=== PATIENT | female | born 1980 | race Caucasian/White ===

== ENCOUNTER 2016-07-16 08:10 | Day surgery (SDC) | payer BC ==
[~2016-07-16] VITALS: Ht 180.3 cm; Wt 85.7 kg
[~2016-07-16 08:10] MED LIST: ACET325T9 PO; ACETAMINOPHEN INTRAVENOUS 100 ML IV ONE; CYCL10TA2 PO; DIPHENHYDRAMINE 50 MG/ML VIAL. IV PRN; DULO60CA6 PO; ESTR2TAB PO; FENTANYL PF 100 MCG/2 ML VIAL. IV PRN; HYDR25SU18 RC; HYDROMORPHONE 2 MG/ML VIAL. IV PRN; IV RINGERS,LACTATED 1000ML 1,000 ML IV SCH; LIDOCAINE 1% 1 ML SYRINGE. ID PRN; MEPERIDINE PF 25 MG/ML VIAL. IV PRN; MIDAZOLAM HCL/PF 2 MG/2 ML VIAL. IV PRN; OXYC-323 PO; PROCHLORPERAZINE 10 MG/2 ML VIAL. IV PRN; ZOLP10TA PO
[2016-07-16] MEDS ORDERED: PROPOFOL 20 ML IV ONE (09:09)
[2016-07-16] MEDS ORDERED: MIDAZOLAM HCL/PF 2 MG/2 ML VIAL. ONE (09:09)
[2016-07-16] MEDS ORDERED: ONDANSETRON PF 4 MG/2 ML VIAL. ONE (09:09)
[2016-07-16] MEDS ORDERED: DEXAMETHASONE SOD PHOS 20 MG/5 ML VIAL. ONE (09:09)
[2016-07-16] MEDS ORDERED: LIDOCAINE 2% 100 MG/5 ML SYRINGE. ONE (09:09)
[2016-07-16] MEDS ORDERED: ROCURONIUM 50 MG/5 ML VIAL. ONE (09:10)
[2016-07-16] MEDS ORDERED: FENTANYL PF 100 MCG/2 ML VIAL. ONE (09:10)
[2016-07-16] MEDS ORDERED: BUPIVACAINE-EPI 0.25%-1:200000 50 ML VIAL. ONE (09:23)
[2016-07-16] MEDS ORDERED: CEFAZOLIN 2GM PREMIX 50 ML IV ONE (10:00)
[2016-07-16] MEDS ORDERED: GLYCOPYRROLATE 1 MG/5 ML VIAL. ONE (10:16)
[2016-07-16] MEDS ORDERED: NEOSTIGMINE METHYLSULFATE 5 MG/5 ML SYRINGE. ONE (10:16)
[2016-07-16] MEDS ORDERED: SEVOFLURANE 61 TO 120 MINUTES. IH ONE (10:21)
--- NOTE | 2016-07-16 10:36 | PDOC ---
BRIEF OPERATIVE NOTE Date: Jul 16, 2016 Pre-Op Diagnosis Pelvic and abdominal pain. Post-Op Diagnosis Abdominal adhesions and foreign body Procedure Performed Dx L/S with removal foreign body and lysis of adhesions Surgeon Brian Anesthesia Type: General Blood Loss 10ml Specimens Obtained foreign body metallic stable. Findings As above Complications None MOISES ARANGO MD Jul 16, 2016 10:36
--- NOTE | 2016-07-16 10:37 | DISCH ---
DISCHARGE INSTRUCTIONS Condition on Discharge Condition on Discharge: Stable Activity After Discharge Activity Instructions for Disc: Avoid exertion Other activity instructions: No lifiting >20lbs for 2 weeks Lifting Instructions after Dis: No heavy lifting Diet after Discharge Diet after Discharge: Regular Wound Incision Care Other wound/incision instructi: Deena shower in 24 hours Contacting the after DC Call your doctor for: If your condition worsens Follow-Up Follow up with: Dr Arango in 2 weeks MOISES ARANGO MD Jul 16, 2016 10:37
[2016-07-16] MEDS ORDERED: KETOROLAC TROMETHAMINE 30 MG/ML INJ. ONE (10:38)
[2016-07-16] MEDS: FENTANYL PF 100 MCG/2 ML VIAL. IV PRN ×2 (10:40→10:57)
[2016-07-16] MEDS ORDERED: KETOROLAC TROMETHAMINE 30 MG/ML INJ. IV ONE (11:30)
[2016-07-16] MEDS ORDERED: FENTANYL PF 100 MCG/2 ML VIAL. IV PRN ×2 (11:45)
--- NOTE | 2016-07-16 11:55 | OP ---
DATE OF SURGERY: 07/16/2016 PREOPERATIVE DIAGNOSIS: Abdominal pelvic pain. POSTOPERATIVE DIAGNOSIS: Foreign body, staple with adhesions. PROCEDURE: Diagnostic laparoscopy, lysis of adhesions, removal of foreign body. SURGEON: Sonido Arango M.D. INDICATIONS: The patient is a 35-year-old female who is having worsening lower abdominal pelvic pain. She has had several surgeries; , hysterectomy, diagnostic laparoscopy with lysis of adhesions and other PR INTERN surgeries. Last diagnostic laparoscopy with lysis of adhesions was 3-5 years ago, which was having similar pain after the procedure, after lysis of adhesions she felt much better for that period of time. PROCEDURE: Diagnostic laparoscopy with lysis of adhesions was explained to the patient in detail. Risks, benefits were also discussed including bleeding, infection, injury to intra-abdominal contents, possibly sustaining further open operations. Alternatives of this procedure were also discussed with the patient who seemed to understand and gave verbal consent to have the procedure performed. DESCRIPTION OF PROCEDURE: The patient was taken to the operating room and placed in the supine position, general anesthesia was initiated. Once the patient was asleep and intubated, her abdomen was prepped and draped in usual sterile fashion using ChloraPrep. An area at her umbilicus injected 0.25% Marcaine with epinephrine. Incision was made with an 11 blade scalpel and a Veress needle was placed within the abdomen. Pneumoperitoneum was achieved. Once this was complete, 5 mm port was placed and a 5 mm camera was placed within the abdomen. Abdomen was inspected and it was noted that she had in the right lower quadrant just kind of lateral to the midline on the anterior abdominal wall was an area of scar tissue and adhesions and also appeared to be couple of patience that were part of this adhesion that also incorporated some large intestine in the adhesions. At this point two more 5 mm ports were placed, one in the right mid abdomen and one in the left mid abdomen under direct visualization, using a [place] dissector and EndoShears scissors the adhesions were taken down on the anterior abdominal wall to the colon. This exposed the staple this was resected using sharp dissection and electrocautery. Staple was removed and sent for pathology. There were a few more ____ adhesions to the colon and small bowel along the previous Pfannenstiel incision these were taken down with sharp dissection without any difficulties. It was felt at this point all these adhesions had been safely taken down and the abdomen appeared to be in good condition. The pneumoperitoneum was reduced. All ports were removed. The skin was reapproximated at all port sites with 4-0 subcuticular Monocryl. Mastisol, Steri-Strips and Band-Aids were applied as dressings. The patient was awakened, extubated in the operating room, taken to recovery in stable condition. All sponge, instrument counts listed as correct. Estimated blood loss 10 mL. SONIDO ARANGO MD DR: KRISHAN/jana JOB#: [id number] / [id number] Dalila Connelly MD
[2016-07-16] MEDS ORDERED: OXYCODONE/APAP 5/325 TABLET. PO ONE (12:15)
[2016-07-16] MEDS ORDERED: CEFAZOLIN 2GM PREMIX 50 ML IV SCH (12:15)
[2016-07-16] MEDS ORDERED: OXYC-323 PO (12:23)
[2016-07-16 13:10] VITALS: BP 95/51
--- NOTE | 2016-07-17 17:23 | PATHOLOGY ---
PATHOLOGY REPORT * * * * * * * * FINAL DIAGNOSIS: Foreign body, clinically from abdominal area (Gross only). (JPM:mgr; d/t: 07/17/16) REPORT ELECTRONICALLY SIGNED BY: Jhonny Manning M.D. DATE/TIME: 07/17/2016 17:22 * * * * * * * * GROSS PATHOLOGY: The specimen is received in formalin labeled "Emily Medina, foreign body," and verified as "abdomen area" via phone. Received is a segment of red-brown soft tissue measuring 0.7 x 0.5 x 0.1 cm in greatest dimensions. Sectioning through the specimen reveals a single metallic staple encased in soft tissue measuring 0.4 x 0.3 x 0.1 cm. A gross photograph is taken. Sections are not submitted. (CAA; 07/17/2016) INITIAL CPT CODE(S): A; 98687 Professional services performed by [facility] [place] [address] Technical services performed by [facility] at [address] [place] [address]. SPECIMEN(S) RECEIVED: A.Foreign body CLINICAL HISTORY: Foreign body, lysis of adhesions; foreign body metallic staple PATIENT: EMILY MEDINA E /AGE: 6 1980 (Age: 35) PATIENT #: [id number] ALT CASE #: SPECIMEN COLLECTION DATE: 07/16/2016 SPECIMEN RECEIVED DATE: 07/16/2016 [facility] - [address] [place] [address] - PHONE: [phone] * * * END OF REPORT * * *
== END 2016-07-16 13:15 | disposition home or self-care (01) ==
LOC: SURG 08:10
PROVIDERS: ATTEND Surgery
DX: K66.0 Peritoneal adhesions (postprocedural) (postinfection) (principal); T18.3XXA Foreign body in small intestine, initial encounter; J44.9 Chronic obstructive pulmonary disease, unspecified; M19.90 Unspecified osteoarthritis, unspecified site; F41.9 Anxiety disorder, unspecified; E16.2 Hypoglycemia, unspecified; Z90.49 Acquired absence of other specified parts of digestive tract; Z98.51 Tubal ligation status; Z90.710 Acquired absence of both cervix and uterus
CPT/HCPCS: J0131; J0690; J1100; J1885; J2250; J2405; J2704; J2710; J3010; J3490; J7030; J7120

== ENCOUNTER 2016-07-19 10:32 | Emergency (ER) | payer BC ==
[~2016-07-19] VITALS: Ht 175.3 cm; Wt 83.9 kg
[~2016-07-19 10:32] MED LIST changes: -ACETAMINOPHEN INTRAVENOUS 100 ML IV ONE; -DIPHENHYDRAMINE 50 MG/ML VIAL. IV PRN; -FENTANYL PF 100 MCG/2 ML VIAL. IV PRN; -HYDROMORPHONE 2 MG/ML VIAL. IV PRN; -IV RINGERS,LACTATED 1000ML 1,000 ML IV SCH; -LIDOCAINE 1% 1 ML SYRINGE. ID PRN; -MEPERIDINE PF 25 MG/ML VIAL. IV PRN; -MIDAZOLAM HCL/PF 2 MG/2 ML VIAL. IV PRN; -PROCHLORPERAZINE 10 MG/2 ML VIAL. IV PRN
[2016-07-19 11:13] LABS: BASO # 0.1 x10^3/uL (0.0-0.2); BASO % 1 % (0-3); EOS % 3 % (0-3); HEMATOCRIT 40.5 % (36.0-47.0); HEMOGLOBIN 13.5 g/dL (12.0-15.5); LYMPH # 3.2 x10^3/uL (1.0-4.8); LYMPH % 36 % (24-48); MEAN CORPUSCULAR HEMOGLOBIN 30 pg (25-35); MEAN CORPUSCULAR HGB CONC 33 g/dL (31-37); MEAN CORPUSCULAR VOLUME 91 fL (79-100); MONO % 6 % (0-9); NEUT % 54 % (31-73); PLATELET COUNT 322 x10^3/uL (140-400); RED BLOOD COUNT 4.44 x10^6/uL (3.50-5.40); WHITE BLOOD COUNT 8.8 x10^3/uL (4.0-11.0)
[2016-07-19 11:14] LABS: BILIRUBIN,URINE NEGATIVE (NEG); GLUCOSE,URINE NEGATIVE (NEG); NITRITE,URINE NEGATIVE (NEG); PH,URINE 6.5; PROTEIN,URINE NEGATIVE (NEG-TRACE); UROBILINOGEN,URINE 0.2 mg/dL (0.2 mg/dL)
[2016-07-19] MEDS ORDERED: ONDANSETRON PF 4 MG/2 ML VIAL. IV ONE (11:15)
[2016-07-19] MEDS ORDERED: IV NORMAL SALINE 1000ML BAG 1,000 ML IV SCH (11:30)
[2016-07-19 11:33] LABS: ALBUMIN 3.3 g/dL (3.4-5.0); ALBUMIN/GLOBULIN RATIO 0.9 (1.0-1.7); CALCIUM 8.8 mg/dL (8.5-10.1); CREATININE 0.8 mg/dL (0.6-1.0); GFR 81.6; POTASSIUM 3.4 mmol/L (3.5-5.1); TOTAL BILIRUBIN 0.3 mg/dL (0.2-1.0)
[2016-07-19] MEDS: FENTANYL PF 100 MCG/2 ML VIAL. IV PRN ×2 (11:33→12:25)
[2016-07-19 11:34] LABS: BACTERIA,URINE 0 /HPF (0-FEW); RBC,URINE OCC /HPF (0-2); SQUAMOUS EPITHELIAL CELL,UR FEW /LPF; WBC,URINE 0 /HPF (0-4)
--- NOTE | 2016-07-19 13:43 | RAD ---
Two-view abdominal series and PA view chest x-ray Indications: Upper quadrant abdominal pain. Nausea. Diarrhea. Symptoms have been present since yesterday. Patient had laparoscopy on July 16, 2016. Findings: No obstructive bowel pattern is seen. No air-fluid levels are seen. No free intraperitoneal air is seen. Mild fecal retention is seen throughout the colon. Vascular calcifications are seen within the anatomic pelvis. Cholecystectomy clips are present. Chest x-ray demonstrates no acute radiographic abnormality. The heart size and pulmonary vasculature and mediastinum and both maximo are unchanged from March 21, 2014. IMPRESSION: No acute radiographic abnormality.
[2016-07-19] MEDS ORDERED: CYCL10TA2 PO (14:34)
[2016-07-19 14:39] VITALS: BP 98/63
--- NOTE | 2016-07-19 15:35 | ED.ADGEN ---
Past Medical History Past Medical History: Other Additional Past Medical Histor: "restrictive lung disease" Past Surgical History: Appendectomy, Cholecystectomy, , Hysterectomy, Tonsillectomy Additional Past Surgical Histo: rt hip bx shoulder Alcohol Use: None Drug Use: None Adult General Chief Complaint Chief Complaint: POST-OP PROBLEM HPI HPI Patient is a 35 year old woman, history of "restrictive lung disease", abdominal adhesions for which she is receive multiple surgeries, including an adhesion lysis that was performed last week with Dr. Torres general surgery, who presents emergency Department with complaint of abdominal pain. Review of Systems Review of Systems Constitutional: Denies fever or chills. [] Eyes: Denies change in visual acuity. [] HENT: Denies nasal congestion or sore throat. [] Respiratory: Denies cough or shortness of breath. [] Cardiovascular: Denies chest pain or edema. [] GI: Denies abdominal pain, nausea, vomiting, bloody stools or diarrhea. [] : Denies dysuria. [] Musculoskeletal: Denies back pain or joint pain. [] Integument: Denies rash. [] Neurologic: Denies headache, focal weakness or sensory changes. [] Endocrine: Denies polyuria or polydipsia. [] Lymphatic: Denies swollen glands. [] Psychiatric: Denies depression or anxiety. [] Current Medications Current Medications Current Medications Medications (Trade) Dose Ordered Sig/Jame Start Time Stop Time Status Last Admin Dose Admin Fentanyl Citrate 25 mcg 25 mcg PRN Q15MIN PRN 07/19/16 11:00 07/19/16 14:46 DC 07/19/16 12:25 25 MCG Ondansetron HCl (Zofran) 4 mg 1X ONCE 07/19/16 11:15 07/19/16 11:16 DC 07/19/16 11:33 4 MG Sodium Chloride (Iv Sodium Chloride 0.9% 1000ml Bag) 1,000 ml @ 1,000 mls/hr Q1H 07/19/16 11:30 07/19/16 12:29 DC 07/19/16 11:33 1,000 MLS/HR Allergies Allergies Allergies Coded Allergies Type Severity Reaction Last Updated Verified NSAIDS (Non-Steroidal Anti-Inflamma Allergy Severe Anaphylaxis 07/16/16 Yes morphine Allergy Intermediate rash 07/16/16 Yes Physical Exam Physical Exam Constitutional: Well developed, well nourished, no acute distress, non-toxic appearance. [] HENT: Normocephalic, atraumatic, bilateral external ears normal, oropharynx moist, no oral exudates, nose normal. [] Eyes: PERRLA, EOMI, conjunctiva normal, no discharge. [] Neck: Normal range of motion, no tenderness, supple, no stridor. [] Cardiovascular:Heart rate regular rhythm, no murmur, S1, S2, rubs or gallops. [] Lungs & Thorax: Bilateral breath sounds clear to auscultation, no wheezing, rhonchi, rales. No chest tenderness or tenderness. [] Abdomen: Bowel sounds normal, soft, patient with healing surgical incisions her labs are procedure noted, incision clean dry and intact, patient with mild ecchymosis on the abdomen, mild tenderness palpation in the midepigastric region , no rebound or rigidity noted, no masses, no pulsatile masses. [] Skin: Warm, dry, no erythema, no rash. [] Back: No tenderness, no CVA tenderness. [] Extremities: No tenderness, no cyanosis, no clubbing, ROM intact, no edema. [] Neurologic: Alert and oriented X 3, normal motor function, normal sensory function, no focal deficits noted. [] Psychologic: Affect normal, judgement normal, mood normal. [] Current Patient Data Vital Signs Vital Signs Date Time Temp Pulse Resp B/P Pulse Ox O2 Delivery O2 Flow Rate FiO2 07/19/16 14:39 66 98/63 07/19/16 13:49 14 95 Room Air 07/19/16 10:37 97.9 97.9 Lab Values Laboratory Tests Test 07/19/16 10:45 White Blood Count 8.8x10^3/uL (4.0-11.0) Red Blood Count 4.44x10^6/uL (3.50-5.40) Hemoglobin 13.5g/dL (12.0-15.5) Hematocrit 40.5% (36.0-47.0) Mean Corpuscular Volume 91fL (79-100) Mean Corpuscular Hemoglobin 30pg (25-35) Mean Corpuscular Hemoglobin Concent 33g/dL (31-37) Red Cell Distribution Width 13.0% (11.5-14.5) Platelet Count 322x10^3/uL (140-400) Neutrophils (%) (Auto) 54% (31-73) Lymphocytes (%) (Auto) 36% (24-48) Monocytes (%) (Auto) 6% (0-9) Eosinophils (%) (Auto) 3% (0-3) Basophils (%) (Auto) 1% (0-3) Neutrophils # (Auto) 4.8x10^3uL (1.8-7.7) Lymphocytes # (Auto) 3.2x10^3/uL (1.0-4.8) Monocytes # (Auto) 0.5x10^3/uL (0.0-1.1) Eosinophils # (Auto) 0.2x10^3/uL (0.0-0.7) Basophils # (Auto) 0.1x10^3/uL (0.0-0.2) Urine Collection Type Unknown Urine Color Yellow Urine Clarity Clear Urine pH 6.5 Urine Specific [place] <=1.005 Urine Protein Negativemg/dL (NEG-TRACE) Urine Glucose (UA) Negativemg/dL (NEG) Urine Ketones (Stick) Negativemg/dL (NEG) Urine Blood Negative (NEG) Urine Nitrite Negative (NEG) Urine Bilirubin Negative (NEG) Urine Urobilinogen Dipstick 0.2mg/dL (0.2 mg/dL) Urine Leukocyte Esterase Negative (NEG) Urine RBC Occ/HPF (0-2) Urine WBC 0/HPF (0-4) Urine Squamous Epithelial Cells Few/LPF Urine Bacteria 0/HPF (0-FEW) Sodium Level 142mmol/L (136-145) Potassium Level 3.4mmol/L (3.5-5.1) L Chloride Level 106mmol/L (98-107) Carbon Dioxide Level 27mmol/L (21-32) Anion Gap 9 (6-14) Blood Urea Nitrogen 9mg/dL (7-20) Creatinine 0.8mg/dL (0.6-1.0) Estimated GFR (Cockcroft-Gault) 81.6 BUN/Creatinine Ratio 11 (6-20) Glucose Level 117mg/dL (70-99) H Calcium Level 8.8mg/dL (8.5-10.1) Total Bilirubin 0.3mg/dL (0.2-1.0) Aspartate Amino Transferase (AST) 15U/L (15-37) Alanine Aminotransferase (ALT) 20U/L (14-59) Alkaline Phosphatase 135U/L (46-116) H Total Protein 7.0g/dL (6.4-8.2) Albumin 3.3g/dL (3.4-5.0) L Albumin/Globulin Ratio 0.9 (1.0-1.7) L Lipase 123U/L (73-393) Laboratory Tests 07/19/16 10:45 Laboratory Tests 07/19/16 10:45 EKG EKG ECG: Rhythm strip: 60 beats minute, sinus rhythm, no ectopy. As interpreted by me. Radiology/Procedures Radiology/Procedures [] [facility] [address] [place] [address] IMAGING REPORT Signed PATIENT: SHEILA SAMANO ACCOUNT: [id number] : 1980 LOCATION: ER AGE: 35 SEX: F EXAM STATUS: REG ER ORD. PHYSICIAN: ROBERT ROBERTS DO REASON: abd pain PROCEDURE: ACUTE ABDOMEN SERIES Two-view abdominal series and PA view chest x-ray Indications: Upper quadrant abdominal pain. Nausea. Diarrhea. Symptoms have been present since yesterday. Patient had laparoscopy on July 16, 2016. Findings: No obstructive bowel pattern is seen. No air-fluid levels are seen. No free intraperitoneal air is seen. Mild fecal retention is seen throughout the colon. Vascular calcifications are seen within the anatomic pelvis. Cholecystectomy clips are present. Chest x-ray demonstrates no acute radiographic abnormality. The heart size and pulmonary vasculature and mediastinum and both maximo are unchanged from March 21, 2014. IMPRESSION: No acute radiographic abnormality. DICTATED and SIGNED BY: SHEA LEE MD DATE: 07/19/16 5517 CC: EUNICE HENSON MD; ROBERT ROBERTS DO ~ Course & Med Decision Making Course & Med Decision Making Pertinent Labs and Imaging studies reviewed. (See chart for details) Patient with normal vital signs, one episode of diarrhea in the ED, no nausea or vomiting. Primary concern is pain. Patient has not taken any for opiate medication she was given post surgery due to concern for causing constipation, last dose of medication was 2 days ago. He is agreeable to medication all IV fluids and evaluation in the ED. Acute abdominal series obtained, laboratory studies. No evidence of obstruction or other concerning findings identified. On reevaluation patient is resting comfortable, states she is feeling much better. Discussed postoperative discomfort. We did discuss use of other medications aside from narcotics, and continuation of stool softeners. Patient does have allergies to morphine, will hold off on giving tramadol after discussion, will use cycle Benzedrine for general and lysed muscle relaxation, patient to continue her other medications as directed by her primary care provider, to follow-up with Dr. Torres in 2 weeks as scheduled, and to return to the ED for any concerning symptoms as discussed. Patient discharged home in stable condition with plan as above. Dragon Disclaimer Dragon Disclaimer This electronic medical record was generated, in whole or in part, using a voice recognition dictation system. Departure Impression: Primary Impression: Abdominal pain Additional Impression: Diarrhea Disposition: 01 HOME, SELF-CARE Condition: IMPROVED Scripts Cyclobenzaprine Hcl 10 Mg [id number] Mg PO TID PRN PAIN #12 TAB Prov:ROBERT ORBERTS DO 07/19/16 Problem Qualifiers ROBERT ROBERTS DO Jul 19, 2016 15:35
== END 2016-07-19 14:40 | disposition home or self-care (01) ==
LOC: ER 10:32
DX: R10.9 Unspecified abdominal pain (principal); R19.7 Diarrhea, unspecified; Z88.8 Allergy status to other drugs, medicaments and biological substances; Z88.5 Allergy status to narcotic agent; Z90.49 Acquired absence of other specified parts of digestive tract; Z90.710 Acquired absence of both cervix and uterus; Z98.890 Other specified postprocedural states
CPT/HCPCS: 36415; 74022; 80053; 81001; 83690; 85027; 96361; 96374; 96375; 99285; J2405; J3010; J7030

== ENCOUNTER → 2016-09-28 | Outpatient (CLI) | payer BC ==
--- NOTE | 2016-09-28 14:56 | KCIC ---
Left lower extremity venous doppler ultrasound Indication: Posterior thigh pain . Bruising. Technique: Color Doppler, grayscale, duplex, spectral waveform analysis is used to evaluate the lower extremity deep venous system, including the common femoral vein, superficial femoral vein, popliteal vein, tibioperoneal trunk and calf veins. Findings: No evidence of deep venous thrombosis. Normal response to augmentation, normal compressibility and normal phasicity is demonstrated. Impression: Negative for deep venous thrombosis Electronically signed by: Paul Gupta MD (09/28/2016 2:53 PM)
== END | disposition home or self-care (01) ==
LOC: KCIC US 14:06
PROVIDERS: ATTEND Nurse Practitioner
DX: M79.605 Pain in left leg (principal); M79.89 Other specified soft tissue disorders
CPT/HCPCS: 93971

== ENCOUNTER 2017-08-01 11:54 | Emergency (ER) | payer BC ==
[2017-08-01] MEDS: DEXAMETHASONE SOD PHOS 4 MG/ML VIAL IV (12:34)
[2017-08-01] MEDS: diphenhydrAMINE 50 MG/ML VIAL IVP (12:34)
[2017-08-01] MEDS: METOCLOPRAMIDE HCL 10 MG/2 ML VIAL. IV (12:35)
[2017-08-01] MEDS: IV NORMAL SALINE 1000ML BAG 1,000 ML IV (12:35)
== END 2017-08-01 13:34 | disposition home or self-care (01) ==
LOC: ER 11:54
DX: G43.909 Migraine, unspecified, not intractable, without status migrainosus (principal); Z88.6 Allergy status to analgesic agent; Z88.5 Allergy status to narcotic agent; Z90.49 Acquired absence of other specified parts of digestive tract; Z90.710 Acquired absence of both cervix and uterus
CPT/HCPCS: 96361; 96374; 96375; 99284-25; J1100; J1200; J2765; J7030

== ENCOUNTER → 2017-12-02 | Outpatient (CLI) | payer BC ==
[2017-08-01 13:29] VITALS: BP 121/74
[2017-12-02] MEDS: LIDOCAINE 1% Multi-Dose 20 ML VIAL. ID ONE (11:46)
[2017-12-02] MEDS: IOHEXOL 300 MG/ML 50 ML VIAL. INT ART ONE (11:46)
[2017-12-02] MEDS: GADOBUTROL 7.5 MMOL/7.5 ML VIAL INT ART ONE (11:46)
--- NOTE | 2017-12-02 13:38 | KCIC ---
MR arthrogram of the right hip Indication: Right hip pain, clicking and popping, for one year. Technique: Standard 4 plane sequences are obtained. Intra-articular contrast was injected by different radiologist, who will dictate that procedure as a separate report. Findings: Artifact: No significant image degradation. Bones: No bone lesion, acute fracture or acute bone marrow edema. No femoral head osteonecrosis. Joint: No advanced DJD or acute articular cartilage defect Labrum: Mild blunting of the superior labrum. No evidence of labral detachment. Gluteus minimus tendon: Mild tendinosis. No high-grade tear. Gluteus medius tendon: Intact Hamstring tendon: Intact Iliopsoas tendon: Intact Rectus femoris tendon attachment: Intact Soft tissues:No significant abnormality. Impression: 1. Mild right gluteus minimus tendinosis. 2. Blunting of the superior labrum, compatible with chronic degeneration or chronic tear. No acute detachment. Electronically signed by: Paul Gupta MD (12/02/2017 1:35 PM) [id number]
--- NOTE | 2017-12-02 14:16 | KCIC ---
Right hip injection using fluoroscopic guidance, prior to MR. HISTORY: Hip pain. Severe right hip pain, popping, clicking for one year. TECHNIQUE: The procedure was explained to the patient as were potential risks, including among others infection, bleeding or allergic reaction. All questions were answered. Informed written and verbal consent was obtained. The hip region was prepped and draped in the usual sterile manner. Following administration of local anesthetic, a 22-gauge needle was advanced into the anterior hip. Following negative aspiration, 12 cc of a solution of 5cc Omnipaque-300 contrast, 5 cc 1% lidocaine, 10 cc normal saline, and 0.1 cc gadolinium was injected without difficulty. The needle was removed. There was good hemostasis at the injection site. The patient left in stable condition without immediate complication. A single spot image is obtained. FLUOROSCOPY TIME:?16 seconds Electronically signed by: Paul Gupta MD (12/02/2017 2:13 PM) [id number]
== END | disposition home or self-care (01) ==
LOC: KCIC 10:24
PROVIDERS: ATTEND Orthopaedic Surgery
DX: M76.891 Other specified enthesopathies of right lower limb, excluding foot (principal); J44.9 Chronic obstructive pulmonary disease, unspecified; G43.909 Migraine, unspecified, not intractable, without status migrainosus; E78.00 Pure hypercholesterolemia, unspecified; Z87.09 Personal history of other diseases of the respiratory system; Z88.5 Allergy status to narcotic agent; Z88.6 Allergy status to analgesic agent; Z88.8 Allergy status to other drugs, medicaments and biological substances; Z96.611 Presence of right artificial shoulder joint; Z96.612 Presence of left artificial shoulder joint; Z90.49 Acquired absence of other specified parts of digestive tract; Z90.710 Acquired absence of both cervix and uterus
CPT/HCPCS: 73525; 73722; A9585; Q9967

== ENCOUNTER 2018-04-11 15:55 | Emergency (ER) | payer BC ==
[~2018-04-11] VITALS: Ht 180.3 cm; Wt 93.0 kg
[~2018-04-11 15:55] MED LIST changes: -OXYC-323 PO; +OXYC1TAB15 PO
[2018-04-11 16:25] VITALS: BP 122/84
[2018-04-11 17:17] LABS: BILIRUBIN,URINE NEGATIVE (NEG); CLARITY,URINE CLEAR; COLOR,URINE YELLOW; NITRITE,URINE NEGATIVE (NEG); PH,URINE 5.5; PROTEIN,URINE NEGATIVE (NEG-TRACE); UROBILINOGEN,URINE 0.2 mg/dL (0.2 mg/dL)
[2018-04-11 17:31] LABS: BACTERIA,URINE FEW /HPF (0-FEW); WBC,URINE OCC /HPF (0-4)
[2018-04-11 17:32] LABS: HYALINE CASTS, URINE FEW /HPF; SQUAMOUS EPITHELIAL CELL,UR FEW /LPF
--- NOTE | 2018-04-11 17:41 | PHYS DOC ---
Past Medical History Past Medical History: Asthma, Migraines Additional Past Medical Histor: "restrictive lung disease" Past Surgical History: Appendectomy, Cholecystectomy, , Hysterectomy, Tonsillectomy Additional Past Surgical Histo: rt hip bx shoulder Alcohol Use: None Drug Use: None Adult General Chief Complaint Chief Complaint: PELVIC PAIN [facility] HPI Patient is a 37 year old female who presents with pelvic pain since . She states it felt like somebody kicked her in the vagina. Patient states she also has pressure and it hurts sits down and is sitting up. She states she feels pressure in the vaginal and rectal region. She had hysterectomy except the left her cervix. Patient denies vaginal discharge or bleeding. She just denies any sexual transmitted disease concerns. She rates pain a 7 out of 10. She took Tylenol at 11:00 today. She is allergic to NSAIDs. Review of Systems Review of Systems Constitutional: Denies fever or chills [] Eyes: Denies change in visual acuity, redness, or eye pain [] HENT: Denies nasal congestion or sore throat [] Respiratory: Denies cough or shortness of breath [] Cardiovascular: No additional information not addressed in HPI [] GI: Pelvic pain since April 05. Denies abdominal pain, nausea, vomiting, bloody stools or diarrhea [] : Denies dysuria or hematuria [] Musculoskeletal: Denies back pain or joint pain [] Integument: Denies rash or skin lesions [] Neurologic: Denies headache, focal weakness or sensory changes [] All other systems were reviewed and found to be within normal limits, except as documented in this note. Allergies Allergies Allergies Coded Allergies Type Severity Reaction Last Updated Verified NSAIDS (Non-Steroidal Anti-Inflamma Allergy Severe Anaphylaxis 07/16/16 Yes morphine Allergy Intermediate rash 07/16/16 Yes Physical Exam Physical Exam Constitutional: Well developed, well nourished, no acute distress, non-toxic appearance. [] HENT: Normocephalic, atraumatic, bilateral external ears normal, oropharynx moist, no oral exudates, nose normal. [] Eyes: PERRLA, EOMI, conjunctiva normal, no discharge. [] Neck: Normal range of motion, no tenderness, supple, no stridor. [] Cardiovascular:Heart rate regular rhythm, no murmur [] Lungs & Thorax: Bilateral breath sounds clear to auscultation [] Abdomen: White, yellow discharge. Bowel sounds normal, soft, no tenderness, no masses, no pulsatile masses. [] Skin: Warm, dry, no erythema, no rash. [] Back: No tenderness, no CVA tenderness. [] Extremities: No tenderness, no cyanosis, no clubbing, ROM intact, no edema. [] Neurologic: Alert and oriented X 3, normal motor function, normal sensory function, no focal deficits noted. [] Psychologic: Affect normal, judgement normal, mood normal. [] Current Patient Data Vital Signs Vital Signs Date Time Temp Pulse Resp B/P (MAP) Pulse Ox O2 Delivery O2 Flow Rate FiO2 04/11/18 16:25 97.8 99 18 122/84 (97) 99 Room Air 97.8 Lab Values Laboratory Tests Test 04/11/18 16:30 04/11/18 16:39 04/11/18 17:38 Urine Collection Type Void Urine Color Yellow Urine Clarity Clear Urine pH 5.5 Urine Specific Apex 1.025 Urine Protein Negative mg/dL (NEG-TRACE) Urine Glucose (UA) Negative mg/dL (NEG) Urine Ketones (Stick) Negative mg/dL (NEG) Urine Blood Trace (NEG) Urine Nitrite Negative (NEG) Urine Bilirubin Negative (NEG) Urine Urobilinogen Dipstick 0.2 mg/dL (0.2 mg/dL) Urine Leukocyte Esterase Negative (NEG) Urine RBC 1-2 /HPF (0-2) Urine WBC Occ /HPF (0-4) Urine Squamous Epithelial Cells Few /LPF Urine Bacteria Few /HPF (0-FEW) Urine Hyaline Casts Few /HPF Urine Mucus Marked /LPF POC Urine HCG, Qualitative Hcg negative (Negative) White Blood Count 10.7 x10^3/uL (4.0-11.0) Red Blood Count 4.95 x10^6/uL (3.50-5.40) Hemoglobin 15.5 g/dL (12.0-15.5) Hematocrit 45.1 % (36.0-47.0) Mean Corpuscular Volume 91 fL (79-100) Mean Corpuscular Hemoglobin 31 pg (25-35) Mean Corpuscular Hemoglobin Concent 34 g/dL (31-37) Red Cell Distribution Width 13.0 % (11.5-14.5) Platelet Count 374 x10^3/uL (140-400) Neutrophils (%) (Auto) 57 % (31-73) Lymphocytes (%) (Auto) 32 % (24-48) Monocytes (%) (Auto) 8 % (0-9) Eosinophils (%) (Auto) 3 % (0-3) Basophils (%) (Auto) 1 % (0-3) Neutrophils # (Auto) 6.1 x10^3uL (1.8-7.7) Lymphocytes # (Auto) 3.5 x10^3/uL (1.0-4.8) Monocytes # (Auto) 0.8 x10^3/uL (0.0-1.1) Eosinophils # (Auto) 0.3 x10^3/uL (0.0-0.7) Basophils # (Auto) 0.1 x10^3/uL (0.0-0.2) Sodium Level 146 mmol/L (136-145) H Potassium Level 3.4 mmol/L (3.5-5.1) L Chloride Level 106 mmol/L (98-107) Carbon Dioxide Level 28 mmol/L (21-32) Anion Gap 12 (6-14) Blood Urea Nitrogen 7 mg/dL (7-20) Creatinine 0.7 mg/dL (0.6-1.0) Estimated GFR (Cockcroft-Gault) 94.2 BUN/Creatinine Ratio 10 (6-20) Glucose Level 70 mg/dL (70-99) Calcium Level 9.5 mg/dL (8.5-10.1) Total Bilirubin 0.3 mg/dL (0.2-1.0) Aspartate Amino Transferase (AST) 17 U/L (15-37) Alanine Aminotransferase (ALT) 29 U/L (14-59) Alkaline Phosphatase 127 U/L (46-116) H Total Protein 8.1 g/dL (6.4-8.2) Albumin 3.7 g/dL (3.4-5.0) Albumin/Globulin Ratio 0.8 (1.0-1.7) L Laboratory Tests 04/11/18 17:38 Laboratory Tests 04/11/18 17:38 Microbiology 04/11/18 Wet Prep - Final, Complete EKG EKG [] Radiology/Procedures Radiology/Procedures Pelvic US Impressions: [facility] [address] [place] [address] IMAGING REPORT Signed PATIENT: SHEILA SAMANO ACCOUNT: [id number] : 1980 LOCATION: ER AGE: 37 SEX: F EXAM STATUS: REG ER ORD. PHYSICIAN: LESLYE SURESH APRN REASON: pelvic pain PROCEDURE: PELVIS COMPLETE PELVIS COMPLETE Clinical Indication: PELVIC PAIN Comparison: None. TECHNIQUE: Real-time ultrasound imaging of the pelvis using transabdominal and transvaginal window is performed. Findings: Uterus and ovaries are surgically absent. There are 2 adjacent nabothian cysts each measuring 7-8 mm. No pelvic free fluid is seen. No evidence of adnexal mass. IMPRESSION: Small nabothian cysts. Electronically signed by: Fabián Paige MD (04/11/2018 7:50 PM) [facility] DICTATED and SIGNED BY: FABIÁN PAIGE MD DATE: 04/11/181946 Course & Med Decision Making Course & Med Decision Making Patient is a 37 year old female who presents with pelvic pain since . She states it felt like somebody kicked her in the vagina. Patient states she also has pressure and it hurts sits down and is sitting up. She states she feels pressure in the vaginal and rectal region. She had hysterectomy except the left her cervix. Patient denies vaginal discharge or bleeding. She just denies any sexual transmitted disease concerns. She rates pain a 7 out of 10. She took Tylenol at 11:00 today. She is allergic to NSAIDs. She denies having any dysuria symptoms. Patient has a history of the hysterectomy, restrictive lung disease, hypoglycemia, tachycardia of which she takes metoprolol. Vital signs within normal limits. All lung lobes clear to auscultation. Afebrile. Skin pink warm and dry. Patient denies nausea, vomiting, chest pain, shortness of air, abdominal pain, diarrhea, fever. Abdomen is soft and nontender. Pelvic exam was painful for the patient therefore I could not get a good visual of the cervix. There was white/yellow/ cervical discharge. A Chlam/ gonnorhea and wet mount is done. Pelvic Exam: Special Delivery Carrier present Abdomen: Nontender External Genitalia: Normal Skin Speculum: Normal vaginal mucosa, White/yellow/brown cervical discharge Bimanual: No adnexal masses or tenderness, No CMT Wet mount finds no acute findings. Urine shows no signs of infection. Blood work is unremarkable. Pelvic US shows nabothian cysts. 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 Patient is stable and in no distress. Dragon Disclaimer Dragon Disclaimer This electronic medical record was generated, in whole or in part, using a voice recognition dictation system. Departure Departure Impression: Primary Impression: Pelvic pain Disposition: HOME, SELF-CARE Condition: STABLE Referrals: EUNICE HENSON MD (PCP) YULISA FREEMAN Jr, MD Patient Instructions: Pelvic Pain, Female Additional Instructions: follow up with sugar refinery supervisor or primary care as soon as possible. Scripts Hydrocodone/Apap 5-325 (NORCO 5-325 TABLET) 1 Each Tablet 1 TAB PO PRN Q6HRS PRN for PAIN, #15 TAB 0 Refills Prov: LESLYE SURESH APRN 04/11/18 Attending Signature Attending Signature I have reviewed the PA/PERSONNEL ASSOCIATE's note and plan of care. I was available for consultation as needed during the patient's visit in the emergency department. I agree with the clinical impression, plan, and disposition. LESLYE SURESH APRN Apr 11, 2018 17:41 SLICK MARTINS DO Apr 13, 2018 14:14
[2018-04-11 17:50] LABS: BASO # 0.1 x10^3/uL (0.0-0.2); BASO % 1 % (0-3); EOS # 0.3 x10^3/uL (0.0-0.7); EOS % 3 % (0-3); HEMATOCRIT 45.1 % (36.0-47.0); HEMOGLOBIN 15.5 g/dL (12.0-15.5); LYMPH # 3.5 x10^3/uL (1.0-4.8); LYMPH % 32 % (24-48); MEAN CORPUSCULAR HEMOGLOBIN 31 pg (25-35); MEAN CORPUSCULAR HGB CONC 34 g/dL (31-37); MEAN CORPUSCULAR VOLUME 91 fL (79-100); MONO # 0.8 x10^3/uL (0.0-1.1); MONO % 8 % (0-9); NEUT # 6.1 x10^3uL (1.8-7.7); NEUT % 57 % (31-73); PLATELET COUNT 374 x10^3/uL (140-400); RED BLOOD COUNT 4.95 x10^6/uL (3.50-5.40); WHITE BLOOD COUNT 10.7 x10^3/uL (4.0-11.0)
[2018-04-11 17:58] LABS: CALCIUM 9.5 mg/dL (8.5-10.1); CREATININE 0.7 mg/dL (0.6-1.0); GFR 94.2; POTASSIUM 3.4 mmol/L (3.5-5.1)
[2018-04-11 18:04] LABS: ALBUMIN 3.7 g/dL (3.4-5.0); ALBUMIN/GLOBULIN RATIO 0.8 (1.0-1.7); TOTAL BILIRUBIN 0.3 mg/dL (0.2-1.0); TOTAL PROTEIN 8.1 g/dL (6.4-8.2)
--- NOTE | 2018-04-11 19:54 | RAD ---
PELVIS COMPLETE Clinical Indication: PELVIC PAIN Comparison: None. TECHNIQUE: Real-time ultrasound imaging of the pelvis using transabdominal and transvaginal window is performed. Findings: Uterus and ovaries are surgically absent. There are 2 adjacent nabothian cysts each measuring 7-8 mm. No pelvic free fluid is seen. No evidence of adnexal mass. IMPRESSION: Small nabothian cysts. Electronically signed by: Fabián Paige MD (04/11/2018 7:50 PM) [facility]
[2018-04-11] MEDS ORDERED: HYDR-3164 PO (20:15)
[2018-04-14 13:16] LABS: GC PROBE Negative (Negative)
== END 2018-04-11 20:20 | disposition home or self-care (01) ==
LOC: ER 15:55
DX: R10.2 Pelvic and perineal pain (principal); J45.909 Unspecified asthma, uncomplicated; Z90.49 Acquired absence of other specified parts of digestive tract; Z90.710 Acquired absence of both cervix and uterus; Z88.5 Allergy status to narcotic agent; Z88.6 Allergy status to analgesic agent
CPT/HCPCS: 36415; 76856; 80053; 81001; 81025; 85025; 87491; 87591; 99284; Q0111

== ENCOUNTER → 2019-03-01 | Outpatient (CLI) | payer BC ==
[~2019-03-01] MED LIST changes: +HYDR-3164 PO
--- NOTE | 2019-03-01 10:28 | KCIC ---
Examination: MRI of the right shoulder without contrast HISTORY: History of impingement, decreased range of motion COMPARISON: 02/14/2015 TECHNIQUE: Multiplanar, multisequence MR imaging of the right shoulder performed without contrast FINDINGS: The long head of the biceps tendon within the bicipital groove. The attachment of the long head the biceps tendon to the superior labral anchor grossly appears intact. The attachment of the subscapularis, supraspinatus, infraspinatus tendon grossly appears intact. Mild increased signal identified in the subscapularis, supraspinatus and infraspinatus tendon likely mild tendinosis. The visualized labrum grossly appears unremarkable. Mild degenerative changes identified in the acromioclavicular joint. The acromion is type II. Minimal amount of fluid identified in the subacromial bursa. The muscle bulk grossly appears unremarkable. Fat is present in the rotator interval. FINDINGS: 1. Mild fluid identified in subacromial region likely mild bursal fluid/bursitis. 2. Mild tendinosis of the rotator cuff. Electronically signed by: Lee Porras MD (03/01/2019 10:25 AM) [facility]
== END | disposition home or self-care (01) ==
LOC: KCIC MRI 08:27
PROVIDERS: ATTEND Orthopaedic Surgery
DX: M19.011 Primary osteoarthritis, right shoulder (principal); M75.41 Impingement syndrome of right shoulder; M75.81 Other shoulder lesions, right shoulder
CPT/HCPCS: 73221

== ENCOUNTER → 2019-03-15 | Outpatient (CLI) | payer BC ==
--- NOTE | 2019-03-15 16:13 | KCIC ---
MRI of the cervical spine without contrast 03/15/2019 CLINICAL HISTORY: Neck pain which radiates down the right shoulder. TECHNIQUE: Unenhanced T1-weighted, T2-weighted and inversion recovery sagittal and gradient echo and T2-weighted axial images of the cervical spine were obtained. FINDINGS: Images from the study are degraded by patient motion. Minimal lateral curvature of the cervical spine is seen convex to the right. There is straightening of the normal cervical lordosis. Degenerative signal changes are seen involving all of the disks of the cervical spine. The marrow signal of the visualized bony structures is within normal limits. The cervical spinal cord is normal morphology, position, and signal characteristics. On the axial images throughout the cervical disc spaces very mild degenerative changes are seen. These consist of minimal generalized disc bulges and mild degenerative changes involving the uncovertebral and facet joints. These findings do not result in significant central spinal canal or neural foraminal stenosis at any level. IMPRESSION: Very mild degenerative changes are seen involving cervical spine. These findings do not result in significant central spinal canal or neural foraminal stenosis. Electronically signed by: Martin Walters MD (03/15/2019 4:10 PM) [facility]
== END | disposition home or self-care (01) ==
LOC: KCIC MRI 12:47
PROVIDERS: ATTEND Orthopaedic Surgery
DX: M47.812 Spondylosis without myelopathy or radiculopathy, cervical region (principal); M75.41 Impingement syndrome of right shoulder
CPT/HCPCS: 72141

== ENCOUNTER → 2020-02-13 | Outpatient (CLI) | payer BC ==
--- NOTE | 2020-02-14 08:34 | KCIC ---
EXAM: MRI RIGHT ELBOW DATE: 02/13/2020 3:30 PM CLINICAL INDICATION: Reason: MASS OF JOINT RIGHT ELBOW / Spl. Instructions: palpates a mass indicated by the pt today, VIT E marker used. / History: Pt has numbness in arm since shoulder surgery 11/29. COMPARISON: 02/12/2020 TECHNIQUE: Multiplanar, multisequence MR imaging of the right elbow was performed without IV contrast. FINDINGS: No elbow joint effusion. The ulnar collateral ligament is intact. The radial collateral ligament and visualized portions of the lateral ulnar collateral ligament are intact. The common flexor tendon origin is intact. There is mild increased signal and thickening at the common extensor tendon origin with mild overlying edema. Visualized portions of the biceps and triceps tendons are intact. A fiducial marker is placed at the distal aspect of the dorsal humerus overlying the triceps tendon denoting site of palpable mass. No definite subjacent mass is identified. Mild edema overlying the olecranon, likely trace bursitis or reactive edema. Jointline preserved; articular cartilage preserved. Negative osteochondral lesion. The ulnar nerve is intact, grossly normal in signal and morphology without associated mass. Small epitrochlear lymph nodes are seen medially measuring up to 7 x 6 mm, the larger one contains a fatty hilum. Normal bone marrow signal without edema, fracture or AVN. IMPRESSION: 1. Changes of lateral epicondylitis with thickening of the common extensor tendon origin and mild overlying edema. No discrete associated tear. 2. No discrete mass is seen subjacent to this fiducial marker which was placed at the dorsal aspect of the triceps tendon distally. 3. A few mildly prominent epitrochlear lymph nodes are seen, possibly reactive although distal infectious process or malignancy may result in this appearance and can be correlated with clinical examination. 4. Trace edema overlying the olecranon, likely olecranon bursitis or reactive edema. Electronically signed by: Jun Lee MD (02/14/2020 8:32 AM) [facility]
== END ==
LOC: KCIC MRI 13:58
PROVIDERS: ATTEND Orthopaedic Surgery
DX: M25.821 Other specified joint disorders, right elbow (principal)
CPT/HCPCS: 73221

== ENCOUNTER → 2020-03-19 | Outpatient (CLI) | payer BC ==
[~2020-03-19] MED LIST changes: +ATOR20TA58 PO; +METH4TAB6 PO; +OMEP20CA16 PO; +PROM25TA10 PO
== END ==
LOC: LAB 13:31
PROVIDERS: ATTEND Orthopaedic Surgery
DX: Z01.812 Encounter for preprocedural laboratory examination (principal); Z20.828 Contact with and (suspected) exposure to other viral communicable diseases
CPT/HCPCS: C9803; U0003

== ENCOUNTER 2020-03-22 10:34 | Day surgery (SDC) | payer BC ==
[~2020-03-22] VITALS: Ht 180.3 cm; Wt 85.3 kg
[~2020-03-22 10:34] MED LIST changes: -ATOR20TA58 PO; +IV RINGERS,LACTATED 1000ML 1,000 ML IV SCH; -METH4TAB6 PO; -OMEP20CA16 PO; +ONDANSETRON PF 4 MG/2 ML VIAL. IV PRN; +PROCHLORPERAZINE 10 MG/2 ML VIAL. IV PRN; -PROM25TA10 PO; +fentaNYL PF VIAL 100 MCG/2 ML VIAL IV PRN
[2020-03-22] MEDS ORDERED: fentaNYL PF VIAL 100 MCG/2 ML VIAL ONE ×2 (10:36→12:35)
[2020-03-22] MEDS ORDERED: PROPOFOL 10 MG/ML (20ML) VIAL. IV ONE (10:36)
[2020-03-22] MEDS ORDERED: LIDOCAINE 2% PF 5 ML VIAL. ONE (10:36)
[2020-03-22] MEDS ORDERED: methylPREDNISolone ACETATE 80 MG/ML VIAL. ONE (10:59)
[2020-03-22] MEDS ORDERED: BUPIVACAINE MPF 0.25% 30 ML VIAL. ONE (10:59)
[2020-03-22] MEDS ORDERED: ATOR20TA58 PO (11:09)
[2020-03-22] MEDS ORDERED: OMEP20CA16 PO (11:09)
[2020-03-22] MEDS ORDERED: IV RINGERS,LACTATED 1000ML 1,000 ML IV SCH (11:15)
[2020-03-22] MEDS ORDERED: BUPIVACAINE-EPI 0.25%-1:200000 MPF 30 ML VIAL. INJ ONE (11:15)
[2020-03-22] MEDS ORDERED: DEXAMETHASONE SOD PHOS 4 MG/ML VIAL ONE (11:38)
[2020-03-22] MEDS: fentaNYL PF VIAL 100 MCG/2 ML VIAL IV PRN ×2 (12:40→12:42)
--- NOTE | 2020-03-22 12:41 | PDOC4 ---
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 Procedure: Right shoulder joint, manipulation under anesthesia CPT 89511 Right shoulder, open excision of new osteophyte of the clavicle, partial claviculectomy, CPT 84822 Right elbow, excision of tumor of soft tissue of upper arm and elbow area, subfascial, less than 5 cm, CPT 50500 Surgeon: Yen Burns MD Business Analytics Analyst: ILIA Ferreira Anesthesia: General EBL: 50 mL Specimens Obtained: right elbow soft tissue mass in formalin for permanent specimen Complications: none Drains: none Tourniquet: right arm, 12 minutes at 250 mm Hg Findings: adhesive capsulitis with audible release during manipulation, prominent superior clavicular osteophyte, prominent medial epicondyle soft tissue mass likely lymph node Indications for Procedure: This patient is a 39 -year-old with multiple problems on the right upper extremity. She had arthroscopic distal clavicle excision and rotator cuff repair in the past but has developed a prominence at the superior distal clavicle since that time of surgery. This seems to be a prominent regrowth of a superior osteophyte at the area of previous resection. It has gotten worse over the last few months, and initially I spoke to her about a cortisone injection for relief of the pain from the prominence but we discussed more recently excision of that prominent osteophyte in an open fashion and she would like to proceed with that. We discussed the potential risks that it could regrow. Other risks include infection or other surgical complications. She has a frozen shoulder since the time of the cuff repair, and we discussed manipulation under anesthesia today. Risks of that include slight risk of fracture or neurovascular injury, and risks of recurrent stiffness. Finally she has numbness in the right hand and a prominent mass near the ulnar nerve of the elbow. An EMG does not show any distinct nerve compression. I told her we likely would not do a nerve transposition but I felt like exploration of the ulnar nerve and removal of prominent mass which is probably a lymph node based on MRI was indicated. She agrees with that plan. We discussed the potential risk such as nerve injury, bleeding, recurrence, continued symptoms, infection, scarring, or other potential complications. All of her questions about these procedures were answered and she desired to proceed. Written consent was obtained. Procedure in Detail: The patient was identified in the preoperative holding area. The correct right shoulder, and right elbow were marked by me. She was taken to the operating room where a general anesthetic was used. Preoperative antibiotics were given intravenously. A timeout procedure was performed. The manipulation was performed first. I gently took the patient through range of motion, with care made not to fracture the humerus but for manipulation was needed to release the adhesions. I did forward flexion, abduction, external rotation, and internal rotation, with audible release of adhesions in all planes. This manipulation restored the motion to near normal, and I stabilize the scapula and repeated the range of motion to confirm. No fracture is suspected. Next the arm was circumferentially prepared with ChloraPrep and sterile drapes were applied. An impervious stockinette and Coban were used over the lower arm. The shoulder prominent distal clavicle was treated first. A longitudinal incision was made in an open fashion over the distal clavicle. This has previously been resected, so I did not need to resect the entire distal c lavicle, but there is regrowth of a superior osteophyte along the previously resected ridge, and I removed the prominent new bone growth superiorly, with a rongeurs. I confirmed by palpation that the distal clavicle superior aspect was now smooth, from front to back along the superior aspect. No other prominences could be detected. Copious saline irrigation was used. Bovie electrocautery was used for hemostasis. The skin edges were injected with 0.25% bupivacaine with epinephrine. This was closed in layers with #3-0 Vicryl and #3-0 Stratafix. A sterile tourniquet was placed on the upper arm. An Esmarch bandage was used to exsanguinate the limb. The tourniquet was inflated. A curvilinear incision was made similar to the upper portion of a the incision needed for cubital tunnel release. The ulnar nerve was exposed, and followed proximally to ensure that no ulnar nerve injury would occur during the resection of the mass. Slightly anterior to the ulnar nerve was a prominent medial epicondylar lymph node or other mass, along the medial triceps tendon. The tendon and nerve were retracted, and the mass was excised with a 15 blade scalpel and sent as a specimen. This seems to correspond with the area of prominence on her exam previously, corresponds with the MRI, and was close enough to the ulnar nerve that it may have caused symptoms when it was more swollen. The tourniquet was released. Copious irrigation was used with saline. The skin edges were injected with 0.25% bupivacaine with epinephrine. Bovie electrocautery was used for hemostasis. The incision was repaired in layers with #2-0 Vicryl by sd. My clinical trials assistant reapproximated the skin with #3-0 Stratafix. Steri-Strips and sterile dressings were applied. Needle and sponge counts were correct. There were no apparent complications. YEN BURNS MD Mar 22, 2020 12:41
[2020-03-22] MEDS ORDERED: MORPHINE SULFATE 2 MG/ML VIAL. ONE (12:46)
[2020-03-22] MEDS: MORPHINE SULFATE 2 MG/ML VIAL. IV PRN ×2 (12:48→12:56)
[2020-03-22] MEDS ORDERED: HYDROmorphone 2 MG/ML VIAL ONE (13:11)
[2020-03-22] MEDS: HYDROmorphone 2 MG/ML VIAL IV PRN ×2 (13:13→13:28)
[2020-03-22] MEDS ORDERED: PROM25TA10 PO (13:20)
[2020-03-22] MEDS ORDERED: METH4TAB6 PO (13:22)
[2020-03-22] MEDS ORDERED: oxyCODONE/APAP 5/325 1 TAB TABLET PO ONE (13:30)
[2020-03-22 13:55] VITALS: BP 110/66
--- NOTE | 2020-03-26 09:19 | PATHOLOGY ---
[facility] Accession Number: [id number] . 01 Material submitted: . elbow - RIGHT ELBOW SOFT TISSUE MASS. Modifiers: right . 02 Diagnosis: Fibroadipose tissue, right elbow soft tissue mass: - Consistent with lipoma. LBQ 03/25/2020 1704 Local . 02 Comment: There is no evidence of malignancy. (JPM/db; 03/25/2020) . 02 Electronically signed: . Jhonny Manning MD, Pathologist NPI- [id number] . 01 Gross description: . Received in formalin labeled "Emily Medina, right elbow soft tissue mass" is a fragment of yellow-huerta soft tissue measuring 1.7 x 1.3 x 0.4 cm. The external surface is inked black. The specimen is sectioned to reveal a yellow-huerta homogeneous cut surface. The specimen is submitted entirely in cassette A1. ([facility]; 03/23/2020) [facility] 03/23/2020 1021 Local . 02 Pathologist provided ICD-10: R22.31 . 02 CPT . 897572 Specimen Comment: A courtesy copy of this report has been sent to [phone], [phone] Specimen Comment: [id number] Specimen Comment: Report sent to / DR HENSON Performed at: 01 [facility] [address], [place] [id number] MD Dustin Mares MD Phone: [phone] Performed at: 02 [facility] [address], [place] [id number] MD Jhonny Manning MD Phone: [phone]
== END 2020-03-22 14:20 | disposition home or self-care (01) ==
LOC: SURG 10:34
PROVIDERS: ATTEND Orthopaedic Surgery
DX: M75.01 Adhesive capsulitis of right shoulder (principal); D16.7 Benign neoplasm of ribs, sternum and clavicle; D48.1 Neoplasm of uncertain behavior of connective and other soft tissue; M25.711 Osteophyte, right shoulder; J44.9 Chronic obstructive pulmonary disease, unspecified; M19.90 Unspecified osteoarthritis, unspecified site; E66.9 Obesity, unspecified; F41.9 Anxiety disorder, unspecified; Z90.49 Acquired absence of other specified parts of digestive tract; Z90.710 Acquired absence of both cervix and uterus; Z98.51 Tubal ligation status; Z98.890 Other specified postprocedural states; Z79.899 Other long term (current) drug therapy; Z72.89 Other problems related to lifestyle; Z68.26 Body mass index [BMI] 26.0-26.9, adult
CPT/HCPCS: 23120; 23700; 24076; J0690; J1100; J1170; J2270; J2704; J3010; J3490; 88304; J1040

== ENCOUNTER 2020-06-10 18:02 | Emergency (ER) | payer BC ==
[~2020-06-10] VITALS: Ht 180.3 cm; Wt 87.2 kg
[~2020-06-10 18:02] MED LIST changes: +ATOR20TA58 PO; -IV RINGERS,LACTATED 1000ML 1,000 ML IV SCH; +METH4TAB6 PO; +OMEP20CA16 PO; -ONDANSETRON PF 4 MG/2 ML VIAL. IV PRN; -PROCHLORPERAZINE 10 MG/2 ML VIAL. IV PRN; +PROM25TA10 PO; -fentaNYL PF VIAL 100 MCG/2 ML VIAL IV PRN
--- NOTE | 2020-06-10 19:32 | PHYS DOC ---
Past Medical History Past Medical History: Asthma, High Cholesterol, Migraines Additional Past Medical Histor: "restrictive lung disease" Past Surgical History: Appendectomy, Cholecystectomy, , Hysterectomy, Tonsillectomy Additional Past Surgical Histo: rt hip bx shoulder Smoking Status: Never Smoker Alcohol Use: None Drug Use: None General Adult EDM: Chief Complaint: LOWEREXTREMITY INJURY HPI: HPI: Patient is a 39 year old female who presents with left lower extremity swelling. She states that on Wednesday she took a trip to and from [facility]. She had some leg cramping on her left leg during that time but no other symptoms. She states that this morning she woke up and noticed a reddened area on her left inner leg near the knee. She states it was tender at that time and warm. Throughout the day it became progressively more tender and increased in size. She went to her PCP who sent her to the emergency department due to her recent travel, smoking history, and being on estradiol. She denies any fevers, chills, shortness of breath, chest pain, numbness and tingling in the extremities. Review of Systems: Review of Systems: Constitutional: Denies fever or chills. [] Eyes: Denies change in visual acuity. [] HENT: Denies nasal congestion or sore throat. [] Respiratory: Denies cough or shortness of breath. [] Cardiovascular: Denies chest pain [] GI: Denies abdominal pain, nausea, vomiting, bloody stools or diarrhea. [] : Denies dysuria. [] Musculoskeletal: Denies back pain or joint pain. [] Integument: Positive red tender rash. [] Neurologic: Denies headache, focal weakness or sensory changes. [] Endocrine: Denies polyuria or polydipsia. [] Lymphatic: Denies swollen glands. [] Psychiatric: Denies depression or anxiety. [] Heart Score: Risk Factors: Risk Factors: DM, Current or recent (<one month) smoker, HTN, HLP, family history of CAD, obesity. Risk Scores: Score 0 - 3: 2.5% MACE over next 6 weeks - Discharge Home Score 4 - 6: 20.3% MACE over next 6 weeks - Admit for Clinical Observation Score 7 - 10: 72.7% MACE over next 6 weeks - Early Invasive Strategies Allergies: Allergies: Allergies Coded Allergies Type Severity Reaction Last Updated Verified NSAIDS (Non-Steroidal Anti-Inflamma Allergy Severe Anaphylaxis 03/22/20 Yes Physical Exam: PE: Constitutional: Well developed, well nourished, no acute distress, non-toxic appearance. [] HENT: Normocephalic, atraumatic, bilateral external ears normal, oropharynx moist, no oral exudates, nose normal. [] Eyes: PERRLA, EOMI, conjunctiva normal, no discharge. [] Neck: Normal range of motion, no tenderness, supple, no stridor. [] Cardiovascular:Heart rate regular rhythm, no murmur [] Lungs & Thorax: Bilateral breath sounds clear to auscultation [] Abdomen: Bowel sounds normal, soft, no tenderness, no masses, no pulsatile masses. [] Skin: Warm, dry [] Back: No tenderness, no CVA tenderness. [] Extremities: Swollen, erythematous, tender point on the left inner lower leg near the knee. Signs of streaking towards the knee. Negative swelling of bilateral calf. Negative tenderness to palpation of bilateral calves. +2 pedal pulses bilaterally. Sensation intact in lower extremities bilaterally. Lower extremity range of motion intact [] Neurologic: Alert and oriented X 3, normal motor function, normal sensory function, no focal deficits noted. [] Psychologic: Affect normal, judgement normal, mood normal. [] Current Patient Data: Vital Signs: Vital Signs Date Time Temp Pulse Resp B/P (MAP) Pulse Ox O2 Delivery O2 Flow Rate FiO2 06/10/20 19:07 98.4 95 17 127/94 (105) 99 Room Air 98.4 EKG: EKG: [] Radiology/Procedures: Radiology/Procedures: [] Impression: Superficial thrombophlebitis Course & Med Decision Making: Course & Med Decision Making Pertinent Labs and Imaging studies reviewed. (See chart for details) Patient was evaluated for chief complaint. Work-up consisted of radiologic imaging. Ultrasound performed no deep vein thrombosis. Patient does have a superficial thrombophlebitis. Patient states she cannot take NSAIDs. Patient be discharged home on Keflex for overlying cellulitis advised use hot and warm compresses. [] Dragon Disclaimer: Dragon Disclaimer: This electronic medical record was generated, in whole or in part, using a voice recognition dictation system. Departure Departure Impression: Primary Impression: Superficial thrombosis of left lower extremity Additional Impression: Cellulitis Disposition: DC HOME SELF CARE/HOMELESS Condition: STABLE Referrals: EUNICE HENSON MD (PCP) Patient Instructions: Cellulitis, Phlebitis Additional Instructions: Superficial thrombophlebitis Scripts Cephalexin (CEPHALEXIN) 500 Mg Capsule 1 CAP PO QID, #40 CAP Prov: ALBA SALGADO DO 06/10/20 Tramadol Hcl (ULTRAM) 50 Mg Tablet 1 TAB PO PRN Q6HRS PRN for pain MDD 4 Tablet(s) for 7 Days, #28 TAB 0 Refills Prov: ALBA ASLGADO DO 06/10/20 ALBA SALGADO DO Jun 10, 2020 19:32
[2020-06-10 19:58] LABS: BASO # 0.1 x10^3/uL (0.0-0.2); BASO % 1 % (0-3); EOS # 0.2 x10^3/uL (0.0-0.7); EOS % 2 % (0-3); HEMATOCRIT 43.7 % (36.0-47.0); HEMOGLOBIN 14.9 g/dL (12.0-15.5); LYMPH # 4.2 x10^3/uL (1.0-4.8); LYMPH % 40 % (24-48); MEAN CORPUSCULAR HEMOGLOBIN 31 pg (25-35); MEAN CORPUSCULAR HGB CONC 34 g/dL (31-37); MEAN CORPUSCULAR VOLUME 90 fL (79-100); MONO # 0.8 x10^3/uL (0.0-1.1); MONO % 8 % (0-9); NEUT # 5.1 x10^3/uL (1.8-7.7); NEUT % 49 % (31-73); PLATELET COUNT 386 x10^3/uL (140-400); RED BLOOD COUNT 4.83 x10^6/uL (3.50-5.40); RED CELL DISTRIBUTION WIDTH 13.5 % (11.5-14.5); WHITE BLOOD COUNT 10.4 x10^3/uL (4.0-11.0)
[2020-06-10 20:14] LABS: CALCIUM 9.1 mg/dL (8.5-10.1); CREATININE 0.8 mg/dL (0.6-1.0); GFR 79.9; POTASSIUM 3.8 mmol/L (3.5-5.1)
[2020-06-10 20:20] LABS: ALBUMIN 3.7 g/dL (3.4-5.0); ALBUMIN/GLOBULIN RATIO 0.9 (1.0-1.7); TOTAL BILIRUBIN 0.2 mg/dL (0.2-1.0); TOTAL PROTEIN 7.7 g/dL (6.4-8.2)
[2020-06-10] MEDS ORDERED: TRAM-48 PO (20:32)
[2020-06-10] MEDS ORDERED: CEPH500C PO (20:32)
--- NOTE | 2020-06-10 20:35 | RAD ---
STUDY: US DPLX VENOUS EXTREMITY LOWER LT INDICATION: Lower extremity swelling. TECHNIQUE: Color-flow and pulsed wave duplex ultrasound with compression of venous structures of the left lower extremity. COMPARISON: 09/28/2016. FINDINGS: Duplex ultrasound with compression of the deep venous structures of the left lower extremity from the common femoral vein through the popliteal vein is negative for DVT. The posterior tibial and peroneal veins are segmentally visualized and patent where seen. Normal veno us waveforms and augmentation are noted throughout. Occlusive superficial thrombosis within the greater saphenous vein at the level of the distal thigh d ownward to the proximal lower leg. IMPRESSION: 1. No deep venous thrombosis throughout the left lower extremity. 2. Occlusive superficial thrombosis involving the greater saphenous vein from the distal thigh to the proximal lower leg. Electronically signed by: MADHURI JUNG MD (06/10/2020 8:33 PM) [facility]
[2020-06-10 20:46] VITALS: BP 104/70
== END 2020-06-10 20:50 | disposition home or self-care (01) ==
LOC: ER 18:02
DX: I82.812 Embolism and thrombosis of superficial veins of left lower extremity (principal); L03.116 Cellulitis of left lower limb; R25.2 Cramp and spasm; J45.909 Unspecified asthma, uncomplicated; E78.00 Pure hypercholesterolemia, unspecified; G43.909 Migraine, unspecified, not intractable, without status migrainosus; Z90.49 Acquired absence of other specified parts of digestive tract; Z90.89 Acquired absence of other organs; Z98.890 Other specified postprocedural states; Z90.710 Acquired absence of both cervix and uterus; Z88.8 Allergy status to other drugs, medicaments and biological substances
CPT/HCPCS: 36415; 80053; 85025; 93971; 99284

== ENCOUNTER 2020-11-15 11:21 | Emergency (ER) | payer BC ==
[~2020-11-15] VITALS: Ht 177.8 cm; Wt 90.0 kg
[~2020-11-15 11:21] MED LIST changes: +CEPH500C PO; +TRAM-48 PO
[2020-11-15 12:18] LABS: BASO # 0.1 x10^3/uL (0.0-0.2); BASO % 1 % (0-3); EOS # 0.3 x10^3/uL (0.0-0.7); EOS % 3 % (0-3); HEMATOCRIT 39.8 % (36.0-47.0); HEMOGLOBIN 13.7 g/dL (12.0-15.5); LYMPH # 2.9 x10^3/uL (1.0-4.8); LYMPH % 32 % (24-48); MEAN CORPUSCULAR HEMOGLOBIN 31 pg (25-35); MEAN CORPUSCULAR HGB CONC 35 g/dL (31-37); MEAN CORPUSCULAR VOLUME 89 fL (79-100); MONO # 0.8 x10^3/uL (0.0-1.1); MONO % 9 % (0-9); NEUT % 56 % (31-73); PLATELET COUNT 399 x10^3/uL (140-400); RED BLOOD COUNT 4.49 x10^6/uL (3.50-5.40); WHITE BLOOD COUNT 9.1 x10^3/uL (4.0-11.0)
[2020-11-15 12:28] LABS: CALCIUM 9.3 mg/dL (8.5-10.1); CREATININE 0.7 mg/dL (0.6-1.0); GFR 92.7; POTASSIUM 4.3 mmol/L (3.5-5.1)
[2020-11-15 12:38] LABS: ALBUMIN 3.5 g/dL (3.4-5.0); C-REACTIVE PROTEIN 8.1 mg/L (0-3.3); TOTAL BILIRUBIN 0.2 mg/dL (0.2-1.0)
--- NOTE | 2020-11-15 12:54 | RAD ---
EXAM: Chest, single view. HISTORY: Chest pain. COMPARISON: None. FINDINGS: A frontal view of the chest obtained. There is no infiltrate, pleural effusion or pneumotho rax. The heart is normal in size. There are incidental implanted breast prostheses. IMPRESSION: No acute pulmonary finding. Electronically signed by: Melissa Coleman MD (11/15/2020 12:51 PM) [id number]
[2020-11-15] MEDS ORDERED: DEXAMETHASONE SOD PHOS 4 MG/ML VIAL IVP ONE (13:30)
--- NOTE | 2020-11-15 14:00 | ED.ADGEN ---
Past Medical History Past Medical History: Asthma, High Cholesterol, Migraines Additional Past Medical Histor: "restrictive lung disease", tachycardia Past Surgical History: Appendectomy, Cholecystectomy, , Hysterectomy, Tonsillectomy Additional Past Surgical Histo: rt hip bx shoulder, Bilateral shoulder, R elbow Smoking Status: Current Every Day Smoker Alcohol Use: Occasionally Drug Use: None General Adult EDM: Chief Complaint: CHEST PAIN HPI: HPI: Patient is a 40-year-old female who presents to the emergency room complaining of bilateral lower chest and substernal chest pressure as if something was sitting on her chest. Patient states that she feels like it is hard to get a breath. She denies any congestion, cough, fever, chills, sweats. She does feel fatigued. She has not gotten her Covid vaccines. She states she has felt like this 1 time previously when she had pneumonia. She also states that she has had a blood clot in her leg before but denies any pulmonary embolisms. She does have increased pain with deep breaths. Review of Systems: Review of Systems: Complete ROS is negative unless otherwise documented in HPI Current Medications: Current Medications Medications (Trade) Dose Ordered Sig/Jame Start Time Stop Time Status Last Admin Dose Admin Dexamethasone Sodium Phosphate (Decadron) 10 mg 1X ONCE 11/15/20 13:30 11/15/20 13:31 DC 11/15/20 14:05 10 MG Info (CONTRAST GIVEN -- Rx MONITORING) 1 each PRN DAILY PRN 11/15/20 14:45 11/17/20 14:44 Iohexol (Omnipaque 350 Mg/ml) 100 ml 1X ONCE 11/15/20 14:30 11/15/20 14:34 DC 11/15/20 14:49 100 ML Allergies: Allergies: Allergies Coded Allergies Type Severity Reaction Last Updated Verified NSAIDS (Non-Steroidal Anti-Inflamma Allergy Severe Anaphylaxis 03/22/20 Yes Physical Exam: PE: General: Awake, alert, NAD. Well Nourished, well hydrated. Cooperative HEENT: Atraumatic, EOMI, PERRL, airway patent, moist oral mucosa Neck: Supple, trachea midline Respiratory: CTA bilaterally, normal effort, no wheezing/crackles CV: RRR, no murmur, cap refill <2 GI: Soft, nondistended, nontender, no masses MSK: No obvious deformities Skin: Warm, dry, intact Neuro: A&O x3, speech NL, sensory and motor grossly intact, no focal deficits Psych: Normal affect, normal mood, not suicidal or homicidal Current Patient Data: Labs: Laboratory Tests Test 11/15/20 11:34 11/15/20 12:00 11/15/20 14:10 POC Urine HCG, Qualitative Hcg negative (Negative) White Blood Count 9.1 x10^3/uL (4.0-11.0) Red Blood Count 4.49 x10^6/uL (3.50-5.40) Hemoglobin 13.7 g/dL (12.0-15.5) Hematocrit 39.8 % (36.0-47.0) Mean Corpuscular Volume 89 fL (79-100) Mean Corpuscular Hemoglobin 31 pg (25-35) Mean Corpuscular Hemoglobin Concent 35 g/dL (31-37) Red Cell Distribution Width 13.0 % (11.5-14.5) Platelet Count 399 x10^3/uL (140-400) Neutrophils (%) (Auto) 56 % (31-73) Lymphocytes (%) (Auto) 32 % (24-48) Monocytes (%) (Auto) 9 % (0-9) Eosinophils (%) (Auto) 3 % (0-3) Basophils (%) (Auto) 1 % (0-3) Neutrophils # (Auto) 5.0 x10^3/uL (1.8-7.7) Lymphocytes # (Auto) 2.9 x10^3/uL (1.0-4.8) Monocytes # (Auto) 0.8 x10^3/uL (0.0-1.1) Eosinophils # (Auto) 0.3 x10^3/uL (0.0-0.7) Basophils # (Auto) 0.1 x10^3/uL (0.0-0.2) D-Dimer (Kylee) 1.21 ug/mlFEU (0.00-0.50) H Sodium Level 141 mmol/L (136-145) Potassium Level 4.3 mmol/L (3.5-5.1) Chloride Level 104 mmol/L (98-107) Carbon Dioxide Level 27 mmol/L (21-32) Anion Gap 10 (6-14) Blood Urea Nitrogen 12 mg/dL (7-20) Creatinine 0.7 mg/dL (0.6-1.0) Estimated GFR (Cockcroft-Gault) 92.7 BUN/Creatinine Ratio 17 (6-20) Glucose Level 95 mg/dL (70-99) Calcium Level 9.3 mg/dL (8.5-10.1) Total Bilirubin 0.2 mg/dL (0.2-1.0) Aspartate Amino Transferase (AST) 17 U/L (15-37) Alanine Aminotransferase (ALT) 29 U/L (14-59) Alkaline Phosphatase 156 U/L (46-116) H Troponin I Quantitative < 0.017 ng/mL (0.000-0.055) C-Reactive Protein, Quantitative 8.1 mg/L (0-3.3) H IG-Owq-F-Type Natriuretic Peptide 178 pg/mL (0-124) H Total Protein 7.0 g/dL (6.4-8.2) Albumin 3.5 g/dL (3.4-5.0) Albumin/Globulin Ratio 1.0 (1.0-1.7) SARS-CoV-2 Antigen (Rapid) Negative (NEGATIVE) Laboratory Tests 11/15/20 12:00 Laboratory Tests 11/15/20 12:00 Vital Signs: Vital Signs Date Time Temp Pulse Resp B/P (MAP) Pulse Ox O2 Delivery O2 Flow Rate FiO2 11/15/20 11:25 98.1 95 16 104/70 (81) 98 Room Air 98.1 EKG: EKG: [] Heart Score: C/O Chest Pain: N/A Risk Factors: Risk Factors: DM, Current or recent (<one month) smoker, HTN, HLP, family history of CAD, obesity. Risk Scores: Score 0 - 3: 2.5% MACE over next 6 weeks - Discharge Home Score 4 - 6: 20.3% MACE over next 6 weeks - Admit for Clinical Observation Score 7 - 10: 72.7% MACE over next 6 weeks - Early Invasive Strategies Radiology/Procedures: Radiology/Procedures: [] Course & Med Decision Making: Course & Med Decision Making Pertinent Labs and Imaging studies reviewed. (See chart for details) Patient is a 40-year-old female who presents to the emergency room complaining of chest pain and shortness of breath that started last night and have been constant since onset. Pain is atypical for cardiac chest pain. Differential diagnosis includes pulmonary embolism, pneumonia, costochondritis that is, COVID-19. Lab work is unremarkable. Chest x-ray is normal. D-dimer and Covid test was ordered. Patient has some lymph nodes and signs of the start of pneumonia. Will treat with azithromycin. We discussed quarantine until PCR test returns. Patient's test results and vitals while in the ED were fully reviewed and discussed with the patient. Patient is stable and at this time does not need admission to the hospital. We have discussed strict return precautions and the importance of following up with their Primary Care Physician. Patient stated understanding and was given an opportunity to ask any questions. Patient is in agreement with plan. Dragon Disclaimer: DragCrowdTunes Disclaimer: This electronic medical record was generated, in whole or in part, using a voice recognition dictation system. Departure Departure Impression: Primary Impression: Pneumonia Disposition: HOME / SELF CARE / HOMELESS Condition: STABLE Referrals: EUNICE HENSON MD (PCP) Patient Instructions: Pneumonia, Adult Scripts Azithromycin (ZITHROMAX) 250 Mg Tablet 1 PKG PO UD, #6 TAB Prov: VALERIY DAVID MD 11/15/20 Prednisone (PREDNISONE) 50 Mg Tablet 1 TAB PO DAILY, #5 TAB Prov: VALERIY DAVID MD 11/15/20 VALERIY DAVID MD Nov 15, 2020 14:00
[2020-11-15] MEDS ORDERED: IOHEXOL 350 MG/ML 100 ML VIAL. IV ONE (14:30)
[2020-11-15] MEDS ORDERED: CONTRAST GIVEN. MC PRN (14:45)
--- NOTE | 2020-11-15 15:21 | RAD ---
CTA OF THE CHEST WITH AND WITHOUT CONTRAST Clinical indications: Chest pain. Shortness of breath. Elevated d-dimer. Technique: Noncontrast axial localizer was performed. After IV infusion of 100 cc of Omnipaque 350, h elical CT scanning of the chest was performed using the CTA pulmonary embolism protocol. Coronal and sagittal MIP reconstructions were generated. PQRS compliance Statement One or more of the following individualized dose reduction techniques were utilized for this study: 1. Automated exposure control 2. Adjustment of the mA and/or kV according to patient size 3. Use of iterative reconstruction technique Comparison: No previous chest CT available. Findings: No pulmonary embolism is seen. No focal aneurysmal dilatation or dissection is seen. This i s normal and no pericardial effusion is seen. There is a mediastinal lymph node within the aortic pul monary window measuring 19 mm. There is an azygos lymph node measuring 16 mm. There is a right hilar lymph node measuring 14 mm. There is left hilar lymph node measuring 19 mm. No enlarged axillary lymp hadenopathy is seen. No pleural effusion or pneumothorax is seen. No lung mass or lung consolidation is seen. Dependent atelectasis is seen within both posterior lower lobes. The proximal bronchial tree is patent. No lytic process is seen. No adrenal mass is evident. Bilateral breast implants are seen. IMPRESSION: No pulmonary embolism. No acute lung infiltrate. Mediastinal and hilar lymph nodes which most likely are reactive in nature. This finding may be follo wed up in 6 months to ensure stability. Electronically signed by: Hardeep Guthrie MD (11/15/2020 3:19 PM) [id number]
--- NOTE | 2020-11-15 15:40 | EKG ---
[facility] [address] [place] [address] Test Date: 2020-11-15 Test Time: 11:30:22 Pat Name: SHEILA SAMANO Department: Room: Gender: F Sort Manager: : 1980 Requested By: VALERIY DAVID Order Number: [id number] Reading MD: Measurements Intervals [place] Rate: 91 P: 52 LA: 170 QRS: 53 QRSD: 80 T: 26 QT: 352 QTc: 435 Interpretive Statements SINUS RHYTHM INCOMPLETE RIGHT BUNDLE BRANCH BLOCK NO SPECIFIC ECG ABNORMALITIES RI6.02 No previous ECG available for comparison
[2020-11-15 16:40] VITALS: BP 107/67
[2020-11-15] MEDS ORDERED: PRED50TA PO (16:57)
[2020-11-15] MEDS ORDERED: AZIT250T PO (16:57)
--- NOTE | 2020-11-16 16:04 | NUR ---
IP: Informed pt of negative covid test. Pt verbalized understanding.
== END 2020-11-15 17:15 | disposition home or self-care (01) ==
LOC: ER 11:21
DX: J18.9 Pneumonia, unspecified organism (principal); J45.909 Unspecified asthma, uncomplicated; E78.00 Pure hypercholesterolemia, unspecified; G43.909 Migraine, unspecified, not intractable, without status migrainosus; F17.200 Nicotine dependence, unspecified, uncomplicated; Z20.822 Contact with and (suspected) exposure to COVID-19; Z88.6 Allergy status to analgesic agent
CPT/HCPCS: 36415; 71045; 71275; 80053; 81025; 83880; 84484; 85025; 85379; 86140; 87426; 93005; 96374; 99285; J1100; Q9967; U0003; U0005

== ENCOUNTER 2021-01-10 16:35 | Emergency (ER) | payer BC ==
[~2021-01-10] VITALS: Ht 177.8 cm; Wt 86.0 kg
[~2021-01-10 16:35] MED LIST changes: +AZIT250T PO; -DULO60CA6 PO; +DULO60CA7 PO; -ESTR2TAB PO; +ESTR2TAB3 PO; +PRED50TA PO
[2021-01-10] MEDS ORDERED: IV NORMAL SALINE 1000ML BAG 1,000 ML IV ONE (18:00)
[2021-01-10] MEDS ORDERED: ONDANSETRON PF 4 MG/2 ML VIAL. IVP ONE (18:00)
[2021-01-10] MEDS ORDERED: DEXAMETHASONE SOD PHOS 20 MG/5 ML VIAL. IV ONE (18:00)
[2021-01-10] MEDS ORDERED: diphenhydrAMINE 50 MG/ML VIAL IVP ONE (18:00)
[2021-01-10] MEDS ORDERED: PROCHLORPERAZINE 10 MG/2 ML VIAL. IV ONE (18:00)
[2021-01-10 18:21] VITALS: BP 94/60
--- NOTE | 2021-01-10 18:46 | PHYS DOC ---
Past Medical History Past Medical History: Asthma, High Cholesterol, Migraines Additional Past Medical Histor: restrictive lung disease Past Surgical History: Appendectomy, Cholecystectomy, , Hysterectomy, Other Additional Past Surgical Histo: R hip, B shoulder Smoking Status: Current Every Day Smoker Alcohol Use: Rarely Drug Use: None General Adult EDM: Chief Complaint: HEADACHE HPI: HPI: Patient is a 40 year old female presents emergency department concerning migraine headache that started when she woke up today, patient reports taking sumatriptan for headache but did not help today. Patient reports when she gets like as she comes to the emergency department gets a headache cocktail to help. Patient reports this is a typical migraine, this is not the worst day of her life, denies thunderclap onset. Patient denies other physical complaints or physical concerns. Review of Systems: Review of Systems: 14 body systems of review of systems have been reviewed. See HPI for pertinent positives and negative responses, otherwise all other systems are negative, nonpertinent or noncontributory. Constitutional: Negative except as outlined in HPI above. Skin: Negative except as outlined in HPI above. Eyes: Negative except as outlined in HPI above. HENT: Negative except as outlined in HPI above. Respiratory: Negative except as outlined in HPI above. Cardiovascular: Negative except as outlined in HPI above. GI: Negative except as outlined in HPI above. : Negative except as outlined in HPI above. Musculoskeletal: Negative except as outlined in HPI above. Integument: Negative except as outlined in HPI above. Neurologic: Negative except as outlined in HPI above. Endocrine: Negative except as outlined in HPI above. Lymphatic: Negative except as outlined in HPI above. Psychiatric: Negative except as outlined in HPI above. Heart Score: C/O Chest Pain: No Risk Factors: Risk Factors: DM, Current or recent (<one month) smoker, HTN, HLP, family history of CAD, obesity. Risk Scores: Score 0 - 3: 2.5% MACE over next 6 weeks - Discharge Home Score 4 - 6: 20.3% MACE over next 6 weeks - Admit for Clinical Observation Score 7 - 10: 72.7% MACE over next 6 weeks - Early Invasive Strategies Current Medications: Current Medications Medications (Trade) Dose Ordered Sig/Jame Start Time Stop Time Status Last Admin Dose Admin Dexamethasone Sodium Phosphate (Decadron) 10 mg 1X ONCE 01/10/21 18:00 01/10/21 18:01 DC 01/10/21 18:11 10 MG Diphenhydramine HCl (Benadryl) 50 mg 1X ONCE 01/10/21 18:00 01/10/21 18:01 DC 01/10/21 18:10 50 MG Ondansetron HCl (Zofran) 4 mg 1X ONCE 01/10/21 18:00 01/10/21 18:01 DC 01/10/21 18:10 4 MG Prochlorperazine Edisylate (Compazine) 10 mg 1X ONCE 01/10/21 18:00 01/10/21 18:01 DC 01/10/21 18:10 10 MG Sodium Chloride 1,000 ml @ 1,000 mls/hr 1X ONCE 01/10/21 18:00 01/10/21 18:59 01/10/21 18:11 1,000 MLS/HR Allergies: Allergies: Allergies Coded Allergies Type Severity Reaction Last Updated Verified NSAIDS (Non-Steroidal Anti-Inflamma Allergy Severe Anaphylaxis 03/22/20 Yes Physical Exam: PE: Constitutional: Well developed, well nourished, no acute distress, non-toxic appearance. 40-year-old female in no apparent distress. HENT: Normocephalic, atraumatic. Eyes: Conjunctiva normal, no discharge. Patient photophobic Neck: Normal range of motion, no stridor. No meningismus signs, no nuchal rigidity. Cardiovascular: No cyanosis appreciated, distal cap refill less than 2 seconds. Lungs & Thorax: Patient is in no respiratory distress, no audible adventitious lung sounds appreciated. Abdomen: Nontender, no abnormalities noted. Skin: Warm, dry, no erythema, no rash. Back: No tenderness, no deformities. Extremities: No tenderness, no cyanosis, no clubbing, ROM intact, no edema. Neurologic: Alert and oriented X 3, normal motor function, normal sensory function, no focal deficits noted. Psychologic: Affect normal, judgement normal, mood normal. Current Patient Data: Vital Signs: Vital Signs Date Time Temp Pulse Resp B/P (MAP) Pulse Ox O2 Delivery O2 Flow Rate FiO2 01/10/21 16:55 97.8 99 20 112/77 (89) 99 Room Air 97.8 EKG: EKG: [] Radiology/Procedures: Radiology/Procedures: [] Course & Med Decision Making: Course & Med Decision Making Pertinent Labs and Imaging studies reviewed. (See chart for details) 40-year-old female, vital signs reviewed, presents emergency department concerning migraine headache. Patient's physical examination unremarkable, will treat with headache cocktail, will reexamine after period of time. Upon reexamination of the patient, patient reports she feels much better now, patient wishes to go home. Patient reports her pain has gone from a 8 down to a 0. Discussed home care instructions, follow-up with PCP, return to ER precautions or concerns, patient is amenable to ED discharge planning, discussed with the patient all findings and diagnostic testing as well as the need to follow-up with their primary care provider for further evaluation and treatment or return to the ED if any new or worsening symptoms. Strict return precautions were also discussed at length, the patient voiced understanding and agreement with the discharge planning. The patient was nontoxic in appearance, in no apparent distress, and hemodynamically stable at the time of disposition. Dragon Disclaimer: Dragon Disclaimer: This electronic medical record was generated, in whole or in part, using a voice recognition dictation system. Departure Departure Impression: Primary Impression: Migraine Qualified Codes: G43.909 - Migraine, unspecified, not intractable, without status migrainosus Disposition: HOME / SELF CARE / HOMELESS Condition: GOOD Referrals: EUNICE HENSON MD (PCP) Patient Instructions: Migraine Headache Additional Instructions: You were seen today for a migraine headache, you were given a migraine headache cocktail, you stated this helped your pain. Lease follow-up with your primary care physician for ongoing migraine evaluation and management. Thank you for visiting our Emergency Department. It was a pleasure taking care of you today in the emergency department and we appreciate you trusting us with your care. If any additional problems come up don't hesitate to return to visit us. Please follow up with your primary care provider so they can plan additional care if needed and know about the problem that you had. If symptoms worsen come back to the Emergency Department. Any concerning symptoms that start such as chest pain, shortness of air, weakness or numbness on one side of the body, running high fevers or any other concerning symptoms return to the ER. SLICK GUAJARDO APRN Jan 10, 2021 18:45
== END 2021-01-10 18:56 | disposition home or self-care (01) ==
LOC: ER 16:35
DX: G43.909 Migraine, unspecified, not intractable, without status migrainosus (principal); E78.00 Pure hypercholesterolemia, unspecified; J45.909 Unspecified asthma, uncomplicated; F17.200 Nicotine dependence, unspecified, uncomplicated; Z88.8 Allergy status to other drugs, medicaments and biological substances
CPT/HCPCS: 96361; 96374; 96375; 99284; J0780; J1100; J1200; J2405; J7030